=== PATIENT | male | born 1995 | race Caucasian/White ===

== ENCOUNTER 2017-05-15 21:07 | Emergency (ER) | payer OTHER ==
[2017-05-15] MEDS: ACETAMINOPH W/CODEINE #3 TAB UD PO (22:54)
== END 2017-05-15 23:00 | disposition home or self-care (01) ==
LOC: M ED 21:07
DX: S02.2XXA Fracture of nasal bones, initial encounter for closed fracture (principal); X58.XXXA Exposure to other specified factors, initial encounter; Y93.67 Activity, basketball
CPT/HCPCS: 70160